=== PATIENT | male | born 1995 | race Two or more races ===

== ENCOUNTER 2020-12-14 23:00 | Emergency (ER) | payer OTHER ==
[2020-12-14 23:09] VITALS: BP 149/82; PULSE 120; RESP 18; TEMP 99.3
[2020-12-14] MEDS ORDERED: diphenhydrAMINE 50 MG CAP PO STA (23:57)
[2020-12-14] MEDS ORDERED: IBUPROFEN 800 MG TAB PO STA (23:57)
[2020-12-14] MEDS ORDERED: FAMOTIDINE 20 MG TAB PO STA (23:57)
[2020-12-14] MEDS ORDERED: DEXAMETHASONE SOD PHOSPHATE 10 MG/ML 1 ML VIAL IM STA (23:57)
[2020-12-14] MEDS ORDERED: AMOXIC-POT CLAV 875-125MG 1 EACH TAB PO STA (23:57)
[2020-12-14] MEDS ORDERED: AMOXIC-POT CLAV 875MG STARTER PACK 2 TAB BTL PO STA (23:57)
--- NOTE | 2020-12-15 00:28 | ED ---
Allergic Reaction HPI - General Chief complaint: Allergic Reaction Stated complaint: RT arm swelling, poss bee sting Time Seen by Provider: 12/14/20 23:25 Source: patient, RN notes reviewed, old records reviewed Mode of arrival: ambulatory Limitations: no limitations - History of Present Illness Initial Comments: This is a 25-year-old male to the ER for evaluation patient since today for evaluation in regards to significant right hand swelling. Patient works his hands wears gloves states he was bit by a bee at work and noticed significant swelling of his right hand return his glove off this afternoon. Patient has never had such a significant ALLERGIC reaction to a bee sting. Patient denies any complaints of shortness of breath no feelings of syncope or near syncope MD Complaint: allergic reaction, other (Bee sting) -: hour(s) Exposure: insect bite Symptoms: rash, other (Hand significantly swollen) Treatment Prior to Arrival: none Previous Allergy History: none - Related Data Previous Rx's Medication Instructions Recorded Amoxic-Pot Clav 875-125Mg 1 tab PO Q12HR #20 tablet 12/15/20 [Augmentin 875-125] Famotidine [Pepcid] 20 mg PO BID #28 tablet 12/15/20 diphenhydrAMINE [Benadryl] 50 mg PO QID PRN #20 capsule 12/15/20 predniSONE 50 mg PO DAILY #5 tab 12/15/20 Allergies Allergy/AdvReac Type Severity Reaction Status Date / Time No Known Allergies Allergy Verified 12/14/20 23:09 Review of Systems ROS Statement: Those systems with pertinent positive or pertinent negative responses have been documented in the HPI. ROS Other: All systems not noted in ROS Statement are negative. Past Medical History Past Medical History: No Reported History History of Any Multi-Drug Resistant Organisms: None Reported Past Surgical History: No Surgical Hx Reported Past Psychological History: No Psychological Hx Reported Smoking Status: Never smoker Past Alcohol Use History: None Reported Past Drug Use History: None Reported General Exam General appearance: alert, in no apparent distress Head exam: Present: atraumatic, normocephalic, normal inspection Eye exam: Present: normal appearance, PERRL, EOMI. Absent: scleral icterus, conjunctival injection, periorbital swelling ENT exam: Present: normal exam, mucous membranes moist Neck exam: Present: normal inspection. Absent: tenderness, meningismus, lymphadenopathy Respiratory exam: Present: normal lung sounds bilaterally. Absent: respiratory distress, wheezes, rales, rhonchi, stridor Cardiovascular Exam: Present: regular rate, normal rhythm, normal heart sounds. Absent: systolic murmur, diastolic murmur, rubs, gallop, clicks GI/Abdominal exam: Present: soft, normal bowel sounds. Absent: distended, tenderness, guarding, rebound, rigid Extremities exam: Present: normal inspection, full ROM, normal capillary refill, other (Right hand has significant edema). Absent: tenderness, pedal edema, joint swelling, calf tenderness Back exam: Present: normal inspection Neurological exam: Present: alert, oriented X3, CN II-XII intact Psychiatric exam: Present: normal affect, normal mood Skin exam: Present: warm, dry, intact, normal color. Absent: rash Course Vital Signs 12/14/20 23:04 Temperature 99.3 F Pulse Rate 120 H Respiratory 18 Rate Blood Pressure 149/82 O2 Sat by Pulse 100 Oximetry - Reevaluation(s) Reevaluation #1: 12/15/20 00:27 Medical record is reviewed Reevaluation #2: 12/15/20 00:28 Patient symptoms are improving here in the ER Reevaluation #3: 12/15/20 00:28 Patient informed of results and questions answered Medical Decision Making - Medical Decision Making 25 male to the ER for evaluation of significant right hand swelling. Patient will be treated for bug bite and insect sting. Patient can be discharged home Disposition Clinical Impression: Allergic reaction to insect sting, Allergic reaction, Bug bite Disposition: HOME SELF-CARE Condition: Good Instructions (If sedation given, give patient instructions): Insect Bite or Sting (ED) Prescriptions: Amoxic-Pot Clav 875-125Mg [Augmentin 875-125] 1 tab PO Q12HR #20 tablet diphenhydrAMINE [Benadryl] 50 mg PO QID PRN #20 capsule PRN Reason: itching/rash Famotidine [Pepcid] 20 mg PO BID #28 tablet predniSONE 50 mg PO DAILY #5 tab Is patient prescribed a controlled substance at d/c from ED?: No Referrals: None,Stated [Primary Care Provider] - 1-2 days
== END 2020-12-15 00:57 | disposition home or self-care (01) ==
LOC: EC 23:00
DX: T63.481A Toxic effect of venom of other arthropod, accidental (unintentional), initial encounter (principal)
CPT/HCPCS: 99283; 96372; J1100

== ENCOUNTER 2022-11-26 13:20 | Emergency (ER) | payer OTHER ==
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
[2022-11-26 15:59] VITALS: BP 148/92; PULSE 117; RESP 16; TEMP 98.3
== END 2022-11-26 15:53 | disposition home or self-care (01) ==
LOC: EC 13:20
DX: M54.50 Low back pain, unspecified (principal); R00.0 Tachycardia, unspecified; V89.2XXA Person injured in unspecified motor-vehicle accident, traffic, initial encounter; Y92.410 Unspecified street and highway as the place of occurrence of the external cause
CPT/HCPCS: 71046; 72100; 93005; 99284